=== PATIENT | female | born 1960 | race Caucasian/White ===

== ENCOUNTER 2017-06-30 14:03 | Inpatient (IN) | payer OTHER ==
[2017-06-30 14:54] VITALS: BMI 25.8
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
[2017-06-30] MEDS ORDERED: guaiFENesin/D-METHORPHAN HB 10 ML UNIT-DOSE CUPS PO PRN (20:14)
[2017-06-30] MEDS ORDERED: P-EPHED 60MG/TRIPROLIDI 2.5MG TABLET PO PRN (20:14)
[2017-06-30] MEDS ORDERED: LOPERAMIDE HCL 2 MG CAPSULE PO PRN (20:14)
[2017-06-30] MEDS ORDERED: MAGNESIUM CITRATE 300 ML BOTTLE PO PRN (20:14)
[2017-06-30] MEDS ORDERED: DOCUSATE SODIUM 100 MG CAPSULE (FP) PO PRN (20:20)
[2017-06-30] MEDS: BUDESONIDE/FORMETEROL FUMARATE 80/4.5 mcg INHALER IH SCH (23:49)
[2017-06-30] MEDS: THIAMINE HCL 100 MG TABLET (FP) PO SCH (23:51)
[2017-06-30] MEDS: ALBUTEROL SO4 18 GM HFA INHALER IH SCH (23:51)
[2017-06-30] MEDS: hydrOXYzine PAMOATE 50 MG CAPSULE (FP) PO PRN (23:52)
[2017-07-01] MEDS: ALBUTEROL SO4 18 GM HFA INHALER IH SCH ×4 (00:09→12:06)
[2017-07-01 01:35] LABS: URINE APPEARANCE SLCLOUDY; URINE BILIRUBIN NEGATIVE (NEGATIVE); URINE BLOOD NEGATIVE (NEGATIVE); URINE COLOR YELLOW; URINE GLUCOSE (UA) NEGATIVE (NEGATIVE); URINE KETONE NEGATIVE (NEGATIVE); URINE NITRITE POSITIVE (NEGATIVE); URINE PROTEIN NEGATIVE (NEGATIVE); URINE UROBILINOGEN NEGATIVE mg/dL (0.2-1.0)
[2017-07-01 02:06] LABS: EPI CELLS RARE /HPF (FEW); URINE BACTERIA RARE /hpf (NONE SEEN); URINE MUCUS RARE
[2017-07-01] MEDS: MAGNESIUM HYDROX 2400MG/30ML ORAL SUSPENSION 30 ML CUP PO PRN (02:48)
[2017-07-01] MEDS: GABAPENTIN 300 MG CAPSULE (FP) PO SCH ×3 (06:43→21:22)
[2017-07-01] MEDS: METHADONE HCL 40 MG DISPERSABLE TABLET PO SCH (07:39)
[2017-07-01] MEDS ORDERED: PT OWN MED DRAWER 7, Y5N ONE ×2 (08:30→20:02)
[2017-07-01] MEDS: CITALOPRAM HYDROBROMIDE 20 MG TABLET (FP) PO SCH (09:12)
[2017-07-01] MEDS: NICOTINE 21 MG/24 HOURS TOPICAL PATCH TD SCH (09:12)
[2017-07-01] MEDS: PRENATAL VITAMINS W/ FOLIC ACID TABLET (FP) PO SCH (09:13)
[2017-07-01] MEDS: BUDESONIDE/FORMETEROL FUMARATE 80/4.5 mcg INHALER IH SCH ×2 (09:13→21:21)
[2017-07-01] MEDS: PANTOPRAZOLE 40 MG TABLET (FP) PO SCH (09:13)
[2017-07-01 10:19] LABS: CHLORIDE 101 mmol/L (98-107); HEMATOCRIT 34.4 % (32.4-45.2); HEMOGLOBIN 11.5 GM/dL (10.7-15.3); MCH 28.3 pg (25.7-33.7); MCHC 33.3 g/dl (32.0-36.0); MEAN CELL VOLUME 84.9 fl (80-96); MEAN PLT VOLUME 9.6 fl (7.5-11.1); PLATELET COUNT 201 K/MM3 (134-434); POTASSIUM 4.5 mmol/L (3.5-5.1); RBC 4.05 M/mm3 (3.60-5.2); RDW 14.1 % (11.6-15.6); SODIUM 136 mmol/L (136-145); WHITE BLOOD COUNT 7.2 K/mm3 (4.0-10.0)
[2017-07-01 10:36] LABS: ALBUMIN 3.1 g/dl (3.4-5.0); ALK PHOS 95 U/L (45-117); ANION GAP 6 (8-16); BILIRUBIN,TOTAL 0.5 mg/dL (0.2-1.0); BLOOD UREA NITROGEN 20 mg/dL (7-18); CALCIUM 8.4 mg/dL (8.5-10.1); CO2 29 mmol/L (21-32); CREATININE 0.8 mg/dL (0.55-1.02); GLUCOSE,RANDOM 130 mg/dL (74-106); SGOT/AST 77 U/L (15-37); SGPT/ALT 90 U/L (12-78); TOT PROT 6.5 g/dl (6.4-8.2)
[2017-07-01 11:07] LABS: URINE LEUK ESTERASE 2+ (NEGATIVE)
[2017-07-01] MEDS ORDERED: FLU VACCINE QUAD 60 MCG/0.5 ML (MDV 17-18) IM ONE (12:00)
[2017-07-01] MEDS: IBUPROFEN 400 MG TABLET (FP) PO PRN (15:34)
[2017-07-01] MEDS: hydrOXYzine PAMOATE 50 MG CAPSULE (FP) PO PRN ×2 (15:36→23:45)
[2017-07-01] MEDS: THIAMINE HCL 100 MG TABLET (FP) PO SCH (21:22)
[2017-07-01] MEDS: QUEtiapine FUMARATE 100 MG TABLET (FP) PO SCH (21:22)
[2017-07-02] MEDS: METHADONE HCL 40 MG DISPERSABLE TABLET PO SCH (06:47)
[2017-07-02] MEDS: GABAPENTIN 300 MG CAPSULE (FP) PO SCH ×3 (06:47→21:28)
[2017-07-02] MEDS: MAG HYDROX/AL HYDROX/SIMETH 30 ML UNIT-DOSE CUP PO PRN (06:50)
[2017-07-02] MEDS: ACETAMINOPHEN 325 MG TABLET (FP) PO PRN (06:52)
--- NOTE | 2017-07-02 08:34 | EKG ---
Test Reason : Blood Pressure : / mmHG Vent. Rate : 087 BPM Atrial Rate : 087 BPM P-R Int : 144 ms QRS Dur : 078 ms QT Int : 368 ms P-R-T Axes : 068 070 064 degrees QTc Int : 442 ms NORMAL SINUS RHYTHM POSSIBLE LEFT ATRIAL ENLARGEMENT BORDERLINE ECG NO PREVIOUS ECGS AVAILABLE Confirmed by AMARIS PAINTER MD ([id number]) on 07/02/2017 8:34:09 AM Referred By: Confirmed By:AMARIS PAINTER MD
[2017-07-02] MEDS: NICOTINE 21 MG/24 HOURS TOPICAL PATCH TD SCH (09:47)
[2017-07-02] MEDS: CITALOPRAM HYDROBROMIDE 20 MG TABLET (FP) PO SCH (09:47)
[2017-07-02] MEDS: PRENATAL VITAMINS W/ FOLIC ACID TABLET (FP) PO SCH (09:48)
[2017-07-02] MEDS: QUEtiapine FUMARATE 100 MG TABLET (FP) PO SCH ×2 (09:48→21:28)
[2017-07-02] MEDS: PANTOPRAZOLE 40 MG TABLET (FP) PO SCH (09:49)
[2017-07-02] MEDS: BUDESONIDE/FORMETEROL FUMARATE 80/4.5 mcg INHALER IH SCH ×2 (09:49→21:27)
[2017-07-02] MEDS: THIAMINE HCL 100 MG TABLET (FP) PO SCH (21:28)
[2017-07-02] MEDS: hydrOXYzine PAMOATE 50 MG CAPSULE (FP) PO PRN (21:54)
[2017-07-03] MEDS: IBUPROFEN 400 MG TABLET (FP) PO PRN (02:43)
[2017-07-03] MEDS: METHADONE HCL 40 MG DISPERSABLE TABLET PO SCH (06:10)
[2017-07-03] MEDS: GABAPENTIN 300 MG CAPSULE (FP) PO SCH ×3 (06:11→21:30)
[2017-07-03] MEDS ORDERED: PT OWN MED DRAWER 7, Y5N ONE ×2 (08:21→11:16)
[2017-07-03] MEDS: QUEtiapine FUMARATE 100 MG TABLET (FP) PO SCH ×2 (10:23→21:30)
[2017-07-03] MEDS: PRENATAL VITAMINS W/ FOLIC ACID TABLET (FP) PO SCH (10:23)
[2017-07-03] MEDS: BUDESONIDE/FORMETEROL FUMARATE 80/4.5 mcg INHALER IH SCH ×2 (10:23→21:30)
[2017-07-03] MEDS: PANTOPRAZOLE 40 MG TABLET (FP) PO SCH (10:23)
[2017-07-03] MEDS: NICOTINE 21 MG/24 HOURS TOPICAL PATCH TD SCH (10:23)
[2017-07-03] MEDS: CITALOPRAM HYDROBROMIDE 20 MG TABLET (FP) PO SCH (10:23)
[2017-07-03] MEDS ORDERED: METHADONE HCL 40 MG DISPERSABLE TABLET PO SCH (10:51)
[2017-07-03] MEDS ORDERED: METHADONE HCL 10 MG TABLET PO ONE (10:54)
--- NOTE | 2017-07-03 10:58 | PN ---
BHS Progress Note (SOAP) Subjective: patient c/o of cravings and desire to use, dose was released while incarceratted also has ankle swelling and body aches, withdrwwal sx Objective: 07/03/17 10:56 Vital Signs - 8 hr 07/03/17 06:52 Temperature 98.2 F Pulse Rate 91 H Respiratory 18 Rate Blood Pressure 137/76 Laboratory Tests 06/30/17 07/01/17 07/01/17 23:00 08:20 08:20 WBC 7.2 RBC 4.05 Hgb 11.5 Hct 34.4 MCV 84.9 MCH 28.3 MCHC 33.3 RDW 14.1 Plt Count 201 MPV 9.6 Sodium 136 Potassium 4.5 Chloride 101 Carbon Dioxide 29 Anion Gap 6 L BUN 20 H Creatinine 0.8 Creat Clearance w eGFR > 60 Random Glucose 130 H Calcium 8.4 L Total Bilirubin 0.5 AST 77 H ALT 90 H Alkaline Phosphatase 95 Total Protein 6.5 Albumin 3.1 L Urine Color Yellow Urine Appearance Slcloudy Urine pH 5.0 Ur Specific [place] 1.011 Urine Protein Negative Urine Glucose (UA) Negative Urine Ketones Negative Urine Blood Negative Urine Nitrite Positive Urine Bilirubin Negative Urine Urobilinogen Negative Ur Leukocyte Esterase 2+ H Urine WBC (Auto) 31 Urine RBC (Auto) 1 Ur Epithelial Cells Rare Urine Bacteria Rare Urine Mucus Rare RPR Titer 07/01/17 08:20 WBC RBC Hgb Hct MCV MCH MCHC RDW Plt Count MPV Sodium Potassium Chloride Carbon Dioxide Anion Gap BUN Creatinine Creat Clearance w eGFR Random Glucose Calcium Total Bilirubin AST ALT Alkaline Phosphatase Total Protein Albumin Urine Color Urine Appearance Urine pH Ur Specific [place] Urine Protein Urine Glucose (UA) Urine Ketones Urine Blood Urine Nitrite Urine Bilirubin Urine Urobilinogen Ur Leukocyte Esterase Urine WBC (Auto) Urine RBC (Auto) Ur Epithelial Cells Urine Bacteria Urine Mucus RPR Titer Nonreactive Assessment: 07/03/17 10:57 hyperglycemia, opioid withdrwal 2/2 inadequate methadoen dosing, increase methadone by 10mg to 50mg and reassess every 3 days, can increase dose 10-20mg/ week while in rehab if needed, dietary consult. , fluids, symptomatic relief of withdrwal ordered, clonidine and baclofen.
[2017-07-03] MEDS: BACLOFEN 10 MG TABLET (FP) PO SCH ×3 (11:22→21:29)
[2017-07-03] MEDS: cloNIDine HCL 0.1 MG TABLET PO SCH ×2 (11:22→21:29)
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
[2017-07-03] MEDS: IBUPROFEN 600 MG TABLET (FP) PO PRN (13:19)
[2017-07-03] MEDS: traZODone HCL 100 MG TABLET (FP) PO SCH (21:29)
[2017-07-03] MEDS: THIAMINE HCL 100 MG TABLET (FP) PO SCH (21:30)
[2017-07-04] MEDS ORDERED: METHADONE HCL 10 MG TABLET ONE (05:42)
[2017-07-04] MEDS ORDERED: METHADONE HCL 40 MG DISPERSABLE TABLET ONE (05:42)
[2017-07-04] MEDS ORDERED: METHADONE 40 MG, METHADONE 10 MG PO SCH (06:00)
[2017-07-04] MEDS: BACLOFEN 10 MG TABLET (FP) PO SCH ×2 (06:18→13:08)
[2017-07-04] MEDS: GABAPENTIN 300 MG CAPSULE (FP) PO SCH ×3 (06:18→21:31)
[2017-07-04] MEDS: PANTOPRAZOLE 40 MG TABLET (FP) PO SCH (06:18)
[2017-07-04] MEDS: IBUPROFEN 600 MG TABLET (FP) PO PRN (06:19)
[2017-07-04] MEDS: MENTHOL/PHENOL 1 EACH UD MM PRN (06:19)
[2017-07-04] MEDS ORDERED: PT OWN MED DRAWER 7, Y5N ONE (08:52)
[2017-07-04] MEDS: PRENATAL VITAMINS W/ FOLIC ACID TABLET (FP) PO SCH (10:04)
[2017-07-04] MEDS: NICOTINE 21 MG/24 HOURS TOPICAL PATCH TD SCH (10:04)
[2017-07-04] MEDS: QUEtiapine FUMARATE 100 MG TABLET (FP) PO SCH ×2 (10:04→21:31)
[2017-07-04] MEDS: CITALOPRAM HYDROBROMIDE 20 MG TABLET (FP) PO SCH (10:04)
[2017-07-04] MEDS: BUDESONIDE/FORMETEROL FUMARATE 80/4.5 mcg INHALER IH SCH ×2 (10:05→21:32)
[2017-07-04] MEDS: cloNIDine HCL 0.1 MG TABLET PO SCH (11:00)
[2017-07-04] MEDS: ALBUTEROL SO4 18 GM HFA INHALER IH PRN (12:06)
[2017-07-04] MEDS ORDERED: METHADONE HCL 40 MG DISPERSABLE TABLET PO SCH (15:13)
[2017-07-04] MEDS ORDERED: METHADONE 40 MG, METHADONE 20 MG PO ONE (16:15)
[2017-07-04] MEDS: MICONAZOLE NITRATE 100 MG SUPP SUPP.VAG PV SCH (21:31)
[2017-07-04] MEDS: traZODone HCL 100 MG TABLET (FP) PO SCH (21:31)
[2017-07-04] MEDS: THIAMINE HCL 100 MG TABLET (FP) PO SCH (21:31)
[2017-07-05] MEDS ORDERED: METHADONE 40 MG, METHADONE 20 MG PO SCH (06:00)
[2017-07-05] MEDS ORDERED: METHADONE HCL 10 MG TABLET ONE (06:24)
[2017-07-05] MEDS ORDERED: METHADONE HCL 40 MG DISPERSABLE TABLET ONE (06:25)
[2017-07-05] MEDS: GABAPENTIN 300 MG CAPSULE (FP) PO SCH ×3 (06:50→21:34)
[2017-07-05] MEDS: IBUPROFEN 600 MG TABLET (FP) PO PRN ×2 (06:52→22:35)
[2017-07-05] MEDS: hydrOXYzine PAMOATE 50 MG CAPSULE (FP) PO PRN (06:53)
[2017-07-05] MEDS: MENTHOL/PHENOL 1 EACH UD MM PRN ×2 (06:54→18:24)
[2017-07-05] MEDS: PANTOPRAZOLE 40 MG TABLET (FP) PO SCH (07:15)
[2017-07-05] MEDS: CITALOPRAM HYDROBROMIDE 20 MG TABLET (FP) PO SCH (10:13)
[2017-07-05] MEDS: BUDESONIDE/FORMETEROL FUMARATE 80/4.5 mcg INHALER IH SCH ×2 (10:13→21:35)
[2017-07-05] MEDS: PRENATAL VITAMINS W/ FOLIC ACID TABLET (FP) PO SCH (10:14)
[2017-07-05] MEDS: QUEtiapine FUMARATE 100 MG TABLET (FP) PO SCH ×2 (10:14→21:36)
[2017-07-05] MEDS: NICOTINE 21 MG/24 HOURS TOPICAL PATCH TD SCH (10:14)
[2017-07-05] MEDS ORDERED: ALBUTEROL SO4 2.5/IPRATROPIUM 0.5 INH SOL 3 ML VIAL.NEB. NEB ONE (11:08)
[2017-07-05] MEDS ORDERED: METHADONE HCL 40 MG DISPERSABLE TABLET PO SCH (11:09)
--- NOTE | 2017-07-05 11:13 | PN ---
BHS Progress Note (SOAP) Subjective: would like to increae methadone dose, no sedation. falls asleep to frequently, still has cravings and body aches. abdo pain and umbilical hernia, radiates to rlQ Objective: 07/05/17 11:11 Vital Signs - 24 hr 07/05/17 07/05/17 07/05/17 00:30 03:30 07:14 Temperature 98.3 F Pulse Rate 103 H Respiratory 18 18 16 Rate Blood Pressure 113/69 Laboratory Tests 06/30/17 07/01/17 07/01/17 23:00 08:20 08:20 WBC 7.2 RBC 4.05 Hgb 11.5 Hct 34.4 MCV 84.9 MCH 28.3 MCHC 33.3 RDW 14.1 Plt Count 201 MPV 9.6 Sodium 136 Potassium 4.5 Chloride 101 Carbon Dioxide 29 Anion Gap 6 L BUN 20 H Creatinine 0.8 Creat Clearance w eGFR > 60 Random Glucose 130 H Calcium 8.4 L Total Bilirubin 0.5 AST 77 H ALT 90 H Alkaline Phosphatase 95 Total Protein 6.5 Albumin 3.1 L Urine Color Yellow Urine Appearance Slcloudy Urine pH 5.0 Ur Specific [place] 1.011 Urine Protein Negative Urine Glucose (UA) Negative Urine Ketones Negative Urine Blood Negative Urine Nitrite Positive Urine Bilirubin Negative Urine Urobilinogen Negative Ur Leukocyte Esterase 2+ H Urine WBC (Auto) 31 Urine RBC (Auto) 1 Ur Epithelial Cells Rare Urine Bacteria Rare Urine Mucus Rare RPR Titer 07/01/17 08:20 WBC RBC Hgb Hct MCV MCH MCHC RDW Plt Count MPV Sodium Potassium Chloride Carbon Dioxide Anion Gap BUN Creatinine Creat Clearance w eGFR Random Glucose Calcium Total Bilirubin AST ALT Alkaline Phosphatase Total Protein Albumin Urine Color Urine Appearance Urine pH Ur Specific [place] Urine Protein Urine Glucose (UA) Urine Ketones Urine Blood Urine Nitrite Urine Bilirubin Urine Urobilinogen Ur Leukocyte Esterase Urine WBC (Auto) Urine RBC (Auto) Ur Epithelial Cells Urine Bacteria Urine Mucus RPR Titer Nonreactive umbilical hernia, soft non tender no rebound, no incarceration. Assessment: 07/05/17 11:12 opioid withdrawal - will slowly titrate methadone dose until it is adequate - start 70mg dialy tomorrow had 60mg today. colace for constipation, zofran for nausea.
[2017-07-05] MEDS: ONDANSETRON *ODT* 4 MG TABLET SL ONE (12:06)
[2017-07-05] MEDS ORDERED: GABAPENTIN 400 MG CAPSULE (FP) PO SCH (14:00)
[2017-07-05] MEDS: traZODone HCL 100 MG TABLET (FP) PO SCH (21:34)
[2017-07-05] MEDS: THIAMINE HCL 100 MG TABLET (FP) PO SCH (21:34)
[2017-07-05] MEDS: MICONAZOLE NITRATE 100 MG SUPP SUPP.VAG PV SCH (21:34)
[2017-07-06] MEDS ORDERED: METHADONE 40 MG, METHADONE 30 MG PO SCH (06:00)
[2017-07-06] MEDS ORDERED: METHADONE HCL 40 MG DISPERSABLE TABLET PO SCH (06:00)
[2017-07-06] MEDS ORDERED: METHADONE HCL 10 MG TABLET ONE (06:13)
[2017-07-06] MEDS ORDERED: METHADONE HCL 40 MG DISPERSABLE TABLET ONE (06:13)
[2017-07-06] MEDS: METHADONE 40 MG, METHADONE 20 MG PO SCH (06:40)
[2017-07-06] MEDS: IBUPROFEN 600 MG TABLET (FP) PO PRN ×2 (06:41→17:00)
[2017-07-06] MEDS: PANTOPRAZOLE 40 MG TABLET (FP) PO SCH (06:41)
[2017-07-06] MEDS: GABAPENTIN 300 MG CAPSULE (FP) PO SCH ×3 (06:41→21:33)
[2017-07-06] MEDS: PRENATAL VITAMINS W/ FOLIC ACID TABLET (FP) PO SCH (10:06)
[2017-07-06] MEDS: CITALOPRAM HYDROBROMIDE 20 MG TABLET (FP) PO SCH (10:06)
[2017-07-06] MEDS: NICOTINE 21 MG/24 HOURS TOPICAL PATCH TD SCH (10:06)
[2017-07-06] MEDS: BUDESONIDE/FORMETEROL FUMARATE 80/4.5 mcg INHALER IH SCH ×2 (10:06→21:33)
--- NOTE | 2017-07-06 12:37 | PN ---
BHS Progress Note Note: uti on c& s will start macrodantin bl le edema add teds will cont to monitor for increased swelling edema not cw cellulitis at this time but possibly in evolution, dw supervisor frame sample and pattern
[2017-07-06] MEDS ORDERED: PT OWN MED DRAWER 7, Y5N ONE ×2 (15:47→15:52)
[2017-07-06] MEDS: COLLOIDAL OATMEAL 1 BAR EACH TP PRN (15:50)
[2017-07-06] MEDS: MINERAL OIL/PETROLAT/WATER TOPICAL CREAM 113 GM JAR TP SCH ×2 (15:50→21:35)
[2017-07-06] MEDS: NITROFURANTOIN MACROCRYSTAL 50 MG CAPSULE (FP) PO SCH ×2 (17:30→23:21)
[2017-07-06] MEDS: NICOTINE POLACRILEX 2 MG GUM BC PRN (17:31)
[2017-07-06] MEDS: QUEtiapine FUMARATE 100 MG TABLET (FP) PO SCH (21:33)
[2017-07-06] MEDS: traZODone HCL 100 MG TABLET (FP) PO SCH (21:33)
[2017-07-06] MEDS: THIAMINE HCL 100 MG TABLET (FP) PO SCH (21:33)
[2017-07-06] MEDS: MICONAZOLE NITRATE 100 MG SUPP SUPP.VAG PV SCH (21:34)
[2017-07-06] MEDS: MENTHOL/PHENOL 1 EACH UD MM PRN (21:35)
[2017-07-07] MEDS: IBUPROFEN 600 MG TABLET (FP) PO PRN ×2 (02:53→19:20)
[2017-07-07] MEDS ORDERED: METHADONE HCL 10 MG TABLET ONE (03:29)
[2017-07-07] MEDS ORDERED: METHADONE HCL 40 MG DISPERSABLE TABLET ONE (03:30)
[2017-07-07] MEDS: METHADONE 40 MG, METHADONE 20 MG PO SCH (06:18)
[2017-07-07] MEDS: NITROFURANTOIN MACROCRYSTAL 50 MG CAPSULE (FP) PO SCH ×4 (06:19→23:51)
[2017-07-07] MEDS: GABAPENTIN 300 MG CAPSULE (FP) PO SCH ×3 (06:19→21:47)
[2017-07-07] MEDS: PANTOPRAZOLE 40 MG TABLET (FP) PO SCH (06:19)
[2017-07-07] MEDS ORDERED: PT OWN MED DRAWER 7, Y5N ONE ×4 (08:38→19:37)
[2017-07-07] MEDS: PRENATAL VITAMINS W/ FOLIC ACID TABLET (FP) PO SCH (10:13)
[2017-07-07] MEDS: CITALOPRAM HYDROBROMIDE 20 MG TABLET (FP) PO SCH (10:13)
[2017-07-07] MEDS: MINERAL OIL/PETROLAT/WATER TOPICAL CREAM 113 GM JAR TP SCH ×2 (10:14→21:46)
[2017-07-07] MEDS: NICOTINE 21 MG/24 HOURS TOPICAL PATCH TD SCH (10:14)
[2017-07-07] MEDS: BUDESONIDE/FORMETEROL FUMARATE 80/4.5 mcg INHALER IH SCH ×2 (10:17→21:46)
[2017-07-07] MEDS: ALBUTEROL SO4 18 GM HFA INHALER IH PRN (12:09)
[2017-07-07] MEDS: ALBUTEROL SO4 2.5/IPRATROPIUM 0.5 INH SOL 3 ML VIAL.NEB. NEB PRN (13:35)
[2017-07-07] MEDS: hydrOXYzine PAMOATE 50 MG CAPSULE (FP) PO PRN (18:13)
[2017-07-07] MEDS: MAG HYDROX/AL HYDROX/SIMETH 30 ML UNIT-DOSE CUP PO PRN (18:59)
[2017-07-07] MEDS: traZODone HCL 100 MG TABLET (FP) PO SCH (21:46)
[2017-07-07] MEDS: QUEtiapine FUMARATE 100 MG TABLET (FP) PO SCH (21:47)
[2017-07-07] MEDS: THIAMINE HCL 100 MG TABLET (FP) PO SCH (21:47)
[2017-07-07] MEDS: DOCUSATE SODIUM 100 MG CAPSULE (FP) PO SCH (21:51)
[2017-07-07] MEDS: MICONAZOLE NITRATE 100 MG SUPP SUPP.VAG PV SCH (21:51)
[2017-07-07] MEDS: ACETAMINOPHEN 325 MG TABLET (FP) PO PRN (23:50)
[2017-07-08] MEDS: IBUPROFEN 600 MG TABLET (FP) PO PRN ×2 (02:33→17:00)
[2017-07-08] MEDS ORDERED: METHADONE HCL 10 MG TABLET ONE (05:57)
[2017-07-08] MEDS ORDERED: METHADONE HCL 40 MG DISPERSABLE TABLET ONE (05:58)
[2017-07-08] MEDS: NITROFURANTOIN MACROCRYSTAL 50 MG CAPSULE (FP) PO SCH ×4 (06:43→23:43)
[2017-07-08] MEDS: GABAPENTIN 300 MG CAPSULE (FP) PO SCH ×3 (06:43→21:36)
[2017-07-08] MEDS: PANTOPRAZOLE 40 MG TABLET (FP) PO SCH (06:43)
[2017-07-08] MEDS: METHADONE 40 MG, METHADONE 20 MG PO SCH (06:44)
[2017-07-08] MEDS ORDERED: PT OWN MED DRAWER 7, Y5N ONE ×2 (08:40→21:39)
[2017-07-08] MEDS: PRENATAL VITAMINS W/ FOLIC ACID TABLET (FP) PO SCH (10:17)
[2017-07-08] MEDS: NICOTINE 21 MG/24 HOURS TOPICAL PATCH TD SCH (10:17)
[2017-07-08] MEDS: MINERAL OIL/PETROLAT/WATER TOPICAL CREAM 113 GM JAR TP SCH ×2 (10:18→21:37)
[2017-07-08] MEDS: CITALOPRAM HYDROBROMIDE 20 MG TABLET (FP) PO SCH (10:18)
[2017-07-08] MEDS: BUDESONIDE/FORMETEROL FUMARATE 80/4.5 mcg INHALER IH SCH ×2 (10:18→21:39)
[2017-07-08] MEDS: hydrOXYzine PAMOATE 50 MG CAPSULE (FP) PO PRN ×2 (10:19→18:45)
--- NOTE | 2017-07-08 15:08 | PN ---
BHS Progress Note Note: Swelling of both lower extremities, pt. is wearing elastic stockings & elevates LE in bed. P : Lasix 20mg/d Aldactone 25mg bid
[2017-07-08] MEDS: FUROSEMIDE 20 MG TABLET (FP) PO SCH (15:38)
[2017-07-08] MEDS: SPIRONOLACTONE 25 MG TABLET (FP) PO SCH (18:44)
[2017-07-08] MEDS: MAG HYDROX/AL HYDROX/SIMETH 30 ML UNIT-DOSE CUP PO PRN (18:46)
[2017-07-08] MEDS: DOCUSATE SODIUM 100 MG CAPSULE (FP) PO SCH (21:35)
[2017-07-08] MEDS: THIAMINE HCL 100 MG TABLET (FP) PO SCH (21:35)
[2017-07-08] MEDS: traZODone HCL 100 MG TABLET (FP) PO SCH (21:35)
[2017-07-08] MEDS: MICONAZOLE NITRATE 100 MG SUPP SUPP.VAG PV SCH (21:36)
[2017-07-08] MEDS: QUEtiapine FUMARATE 100 MG TABLET (FP) PO SCH (21:39)
[2017-07-09] MEDS ORDERED: METHADONE HCL 10 MG TABLET ONE (05:51)
[2017-07-09] MEDS ORDERED: METHADONE HCL 40 MG DISPERSABLE TABLET ONE (05:51)
[2017-07-09] MEDS: METHADONE 40 MG, METHADONE 20 MG PO SCH (07:05)
[2017-07-09] MEDS: NITROFURANTOIN MACROCRYSTAL 50 MG CAPSULE (FP) PO SCH ×3 (07:06→18:22)
[2017-07-09] MEDS: PANTOPRAZOLE 40 MG TABLET (FP) PO SCH (07:06)
[2017-07-09] MEDS: GABAPENTIN 300 MG CAPSULE (FP) PO SCH ×3 (07:06→21:32)
[2017-07-09] MEDS ORDERED: cloNIDine HCL 0.1 MG TABLET PO ONE (07:20)
[2017-07-09] MEDS ORDERED: PT OWN MED DRAWER 7, Y5N ONE ×2 (08:51→17:10)
[2017-07-09 10:02] LABS: ANION GAP 6 (8-16); BLOOD UREA NITROGEN 20 mg/dL (7-18); CALCIUM 9.1 mg/dL (8.5-10.1); CHLORIDE 101 mmol/L (98-107); CO2 31 mmol/L (21-32); GLUCOSE,RANDOM 128 mg/dL (74-106); POTASSIUM 4.6 mmol/L (3.5-5.1); SODIUM 138 mmol/L (136-145)
[2017-07-09] MEDS: SPIRONOLACTONE 25 MG TABLET (FP) PO SCH ×2 (10:05→18:22)
[2017-07-09] MEDS: FUROSEMIDE 20 MG TABLET (FP) PO SCH (10:05)
[2017-07-09] MEDS: NICOTINE 21 MG/24 HOURS TOPICAL PATCH TD SCH (10:05)
[2017-07-09] MEDS: PRENATAL VITAMINS W/ FOLIC ACID TABLET (FP) PO SCH (10:05)
[2017-07-09] MEDS: BUDESONIDE/FORMETEROL FUMARATE 80/4.5 mcg INHALER IH SCH ×2 (10:06→21:35)
[2017-07-09] MEDS: MINERAL OIL/PETROLAT/WATER TOPICAL CREAM 113 GM JAR TP SCH ×2 (10:06→21:35)
[2017-07-09] MEDS: CITALOPRAM HYDROBROMIDE 20 MG TABLET (FP) PO SCH (10:06)
[2017-07-09] MEDS: hydrOXYzine PAMOATE 50 MG CAPSULE (FP) PO PRN (12:14)
[2017-07-09] MEDS: IBUPROFEN 600 MG TABLET (FP) PO PRN (18:24)
[2017-07-09] MEDS: THIAMINE HCL 100 MG TABLET (FP) PO SCH (21:32)
[2017-07-09] MEDS: traZODone HCL 100 MG TABLET (FP) PO SCH (21:32)
[2017-07-09] MEDS: DOCUSATE SODIUM 100 MG CAPSULE (FP) PO SCH (21:32)
[2017-07-09] MEDS: QUEtiapine FUMARATE 100 MG TABLET (FP) PO SCH (21:32)
[2017-07-09] MEDS: MICONAZOLE NITRATE 100 MG SUPP SUPP.VAG PV SCH (21:33)
[2017-07-09] MEDS: MAG HYDROX/AL HYDROX/SIMETH 30 ML UNIT-DOSE CUP PO PRN (21:37)
[2017-07-09] MEDS: NICOTINE POLACRILEX 2 MG GUM BC PRN (21:38)
[2017-07-10] MEDS: NITROFURANTOIN MACROCRYSTAL 50 MG CAPSULE (FP) PO SCH ×5 (00:15→23:36)
[2017-07-10] MEDS: MENTHOL/PHENOL 1 EACH UD MM PRN (03:43)
[2017-07-10] MEDS ORDERED: METHADONE HCL 10 MG TABLET ONE (05:54)
[2017-07-10] MEDS ORDERED: METHADONE HCL 40 MG DISPERSABLE TABLET ONE (05:55)
[2017-07-10] MEDS ORDERED: PT OWN MED DRAWER 7, Y5N ONE ×2 (05:56→08:40)
[2017-07-10] MEDS: GABAPENTIN 300 MG CAPSULE (FP) PO SCH ×3 (06:10→21:34)
[2017-07-10] MEDS: METHADONE 40 MG, METHADONE 20 MG PO SCH (06:10)
[2017-07-10] MEDS: IBUPROFEN 600 MG TABLET (FP) PO PRN ×2 (06:11→21:35)
[2017-07-10] MEDS: PANTOPRAZOLE 40 MG TABLET (FP) PO SCH (06:11)
[2017-07-10] MEDS: BUDESONIDE/FORMETEROL FUMARATE 80/4.5 mcg INHALER IH SCH ×2 (10:06→21:38)
[2017-07-10] MEDS: PRENATAL VITAMINS W/ FOLIC ACID TABLET (FP) PO SCH (10:06)
[2017-07-10] MEDS: CITALOPRAM HYDROBROMIDE 20 MG TABLET (FP) PO SCH (10:06)
[2017-07-10] MEDS: SPIRONOLACTONE 25 MG TABLET (FP) PO SCH ×2 (10:06→17:10)
[2017-07-10] MEDS: FUROSEMIDE 20 MG TABLET (FP) PO SCH (10:06)
[2017-07-10] MEDS: NICOTINE 21 MG/24 HOURS TOPICAL PATCH TD SCH (10:07)
[2017-07-10] MEDS: MINERAL OIL/PETROLAT/WATER TOPICAL CREAM 113 GM JAR TP SCH ×2 (10:08→21:37)
[2017-07-10] MEDS: NICOTINE POLACRILEX 2 MG GUM BC PRN ×2 (10:10→21:37)
[2017-07-10] MEDS: hydrOXYzine PAMOATE 50 MG CAPSULE (FP) PO PRN (13:03)
[2017-07-10] MEDS: ALBUTEROL SO4 18 GM HFA INHALER IH PRN (14:25)
[2017-07-10] MEDS: THIAMINE HCL 100 MG TABLET (FP) PO SCH (21:34)
[2017-07-10] MEDS: traZODone HCL 100 MG TABLET (FP) PO SCH (21:34)
[2017-07-10] MEDS: QUEtiapine FUMARATE 100 MG TABLET (FP) PO SCH (21:34)
[2017-07-10] MEDS: DOCUSATE SODIUM 100 MG CAPSULE (FP) PO SCH (21:35)
[2017-07-10] MEDS: MICONAZOLE NITRATE 100 MG SUPP SUPP.VAG PV SCH (21:36)
[2017-07-11] MEDS ORDERED: METHADONE HCL 10 MG TABLET ONE (03:12)
[2017-07-11] MEDS ORDERED: METHADONE HCL 40 MG DISPERSABLE TABLET ONE (03:12)
[2017-07-11] MEDS: METHADONE 40 MG, METHADONE 20 MG PO SCH (06:24)
[2017-07-11] MEDS: GABAPENTIN 300 MG CAPSULE (FP) PO SCH ×3 (06:25→21:32)
[2017-07-11] MEDS: PANTOPRAZOLE 40 MG TABLET (FP) PO SCH (06:25)
[2017-07-11] MEDS: NITROFURANTOIN MACROCRYSTAL 50 MG CAPSULE (FP) PO SCH ×4 (06:25→23:14)
[2017-07-11] MEDS: MENTHOL/PHENOL 1 EACH UD MM PRN (06:26)
[2017-07-11] MEDS: SPIRONOLACTONE 25 MG TABLET (FP) PO SCH ×2 (10:10→18:15)
[2017-07-11] MEDS: PRENATAL VITAMINS W/ FOLIC ACID TABLET (FP) PO SCH (10:10)
[2017-07-11] MEDS: BUDESONIDE/FORMETEROL FUMARATE 80/4.5 mcg INHALER IH SCH ×2 (10:10→21:32)
[2017-07-11] MEDS: FUROSEMIDE 20 MG TABLET (FP) PO SCH (10:10)
[2017-07-11] MEDS: CITALOPRAM HYDROBROMIDE 20 MG TABLET (FP) PO SCH (10:10)
[2017-07-11] MEDS: NICOTINE 21 MG/24 HOURS TOPICAL PATCH TD SCH (10:11)
[2017-07-11] MEDS: IBUPROFEN 600 MG TABLET (FP) PO PRN ×2 (10:12→23:16)
[2017-07-11] MEDS ORDERED: PT OWN MED DRAWER 7, Y5N ONE ×3 (10:14→23:12)
[2017-07-11] MEDS: MINERAL OIL/PETROLAT/WATER TOPICAL CREAM 113 GM JAR TP SCH ×2 (10:14→21:33)
[2017-07-11] MEDS: hydrOXYzine PAMOATE 50 MG CAPSULE (FP) PO PRN (13:15)
[2017-07-11] MEDS: traZODone HCL 100 MG TABLET (FP) PO SCH (21:31)
[2017-07-11] MEDS: DOCUSATE SODIUM 100 MG CAPSULE (FP) PO SCH (21:31)
[2017-07-11] MEDS: THIAMINE HCL 100 MG TABLET (FP) PO SCH (21:32)
[2017-07-11] MEDS: QUEtiapine FUMARATE 100 MG TABLET (FP) PO SCH (21:32)
[2017-07-11] MEDS: metroNIDAZOLE 0.75% VAGINAL GEL 70 GM TUBE VG SCH (21:34)
[2017-07-12] MEDS ORDERED: METHADONE 40 MG, METHADONE 20 MG PO SCH (06:00)
[2017-07-12] MEDS ORDERED: METHADONE HCL 40 MG DISPERSABLE TABLET ONE (06:24)
[2017-07-12] MEDS ORDERED: METHADONE HCL 10 MG TABLET ONE (06:24)
[2017-07-12] MEDS: NITROFURANTOIN MACROCRYSTAL 50 MG CAPSULE (FP) PO SCH ×4 (06:26→23:39)
[2017-07-12] MEDS: PANTOPRAZOLE 40 MG TABLET (FP) PO SCH (06:26)
[2017-07-12] MEDS: GABAPENTIN 300 MG CAPSULE (FP) PO SCH ×3 (06:26→21:33)
[2017-07-12] MEDS ORDERED: PT OWN MED DRAWER 7, Y5N ONE ×3 (08:35→21:42)
--- NOTE | 2017-07-12 09:01 | PN ---
BHS Progress Note (SOAP) Subjective: vaginal odor, monistat not effective, started last night on metronidoazole topical Objective: 07/12/17 09:00 Vital Signs - 24 hr 07/12/17 07/12/17 07/12/17 00:30 03:30 07:09 Temperature 98.0 F Pulse Rate 79 Respiratory 18 18 18 Rate Blood Pressure 116/74 Laboratory Tests 06/30/17 07/01/17 07/01/17 23:00 08:20 08:20 WBC 7.2 RBC 4.05 Hgb 11.5 Hct 34.4 MCV 84.9 MCH 28.3 MCHC 33.3 RDW 14.1 Plt Count 201 MPV 9.6 Sodium 136 Potassium 4.5 Chloride 101 Carbon Dioxide 29 Anion Gap 6 L BUN 20 H Creatinine 0.8 Creat Clearance w eGFR > 60 Random Glucose 130 H Calcium 8.4 L Total Bilirubin 0.5 AST 77 H ALT 90 H Alkaline Phosphatase 95 Total Protein 6.5 Albumin 3.1 L Urine Color Yellow Urine Appearance Slcloudy Urine pH 5.0 Ur Specific [place] 1.011 Urine Protein Negative Urine Glucose (UA) Negative Urine Ketones Negative Urine Blood Negative Urine Nitrite Positive Urine Bilirubin Negative Urine Urobilinogen Negative Ur Leukocyte Esterase 2+ H Urine WBC (Auto) 31 Urine RBC (Auto) 1 Ur Epithelial Cells Rare Urine Bacteria Rare Urine Mucus Rare RPR Titer 07/01/17 07/09/17 08:20 08:00 WBC RBC Hgb Hct MCV MCH MCHC RDW Plt Count MPV Sodium 138 Potassium 4.6 Chloride 101 Carbon Dioxide 31 Anion Gap 6 L BUN 20 H Creatinine 1.0 D Creat Clearance w eGFR Random Glucose 128 H Calcium 9.1 Total Bilirubin AST ALT Alkaline Phosphatase Total Protein Albumin Urine Color Urine Appearance Urine pH Ur Specific [place] Urine Protein Urine Glucose (UA) Urine Ketones Urine Blood Urine Nitrite Urine Bilirubin Urine Urobilinogen Ur Leukocyte Esterase Urine WBC (Auto) Urine RBC (Auto) Ur Epithelial Cells Urine Bacteria Urine Mucus RPR Titer Nonreactive Assessment: 07/12/17 09:01 bacterial vaginosis, cont metrogel, will increae methadone 10mg as patient reports cravings
[2017-07-12] MEDS: ALBUTEROL SO4 2.5/IPRATROPIUM 0.5 INH SOL 3 ML VIAL.NEB. NEB PRN (09:16)
[2017-07-12] MEDS: PRENATAL VITAMINS W/ FOLIC ACID TABLET (FP) PO SCH (10:23)
[2017-07-12] MEDS: FUROSEMIDE 20 MG TABLET (FP) PO SCH (10:23)
[2017-07-12] MEDS: MINERAL OIL/PETROLAT/WATER TOPICAL CREAM 113 GM JAR TP SCH ×2 (10:23→21:35)
[2017-07-12] MEDS: CITALOPRAM HYDROBROMIDE 20 MG TABLET (FP) PO SCH (10:23)
[2017-07-12] MEDS: SPIRONOLACTONE 25 MG TABLET (FP) PO SCH ×2 (10:23→18:50)
[2017-07-12] MEDS: NICOTINE 21 MG/24 HOURS TOPICAL PATCH TD SCH (10:24)
[2017-07-12] MEDS: BUDESONIDE/FORMETEROL FUMARATE 80/4.5 mcg INHALER IH SCH ×2 (10:24→21:38)
[2017-07-12] MEDS: TOLNAFTATE 1% CREAM 15 GM TUBE TP SCH ×2 (10:25→21:38)
[2017-07-12] MEDS: IBUPROFEN 600 MG TABLET (FP) PO PRN (11:59)
[2017-07-12] MEDS: MAG HYDROX/AL HYDROX/SIMETH 30 ML UNIT-DOSE CUP PO PRN (13:02)
[2017-07-12] MEDS: hydrOXYzine PAMOATE 50 MG CAPSULE (FP) PO PRN (18:51)
[2017-07-12] MEDS: QUEtiapine FUMARATE 100 MG TABLET (FP) PO SCH (21:33)
[2017-07-12] MEDS: THIAMINE HCL 100 MG TABLET (FP) PO SCH (21:33)
[2017-07-12] MEDS: traZODone HCL 100 MG TABLET (FP) PO SCH (21:33)
[2017-07-12] MEDS: DOCUSATE SODIUM 100 MG CAPSULE (FP) PO SCH (21:33)
[2017-07-12] MEDS: metroNIDAZOLE 0.75% VAGINAL GEL 70 GM TUBE VG SCH (21:35)
[2017-07-13] MEDS ORDERED: METHADONE HCL 40 MG DISPERSABLE TABLET PO SCH (06:00)
[2017-07-13] MEDS ORDERED: METHADONE HCL 10 MG TABLET ONE (06:22)
[2017-07-13] MEDS ORDERED: METHADONE HCL 40 MG DISPERSABLE TABLET ONE (06:23)
[2017-07-13] MEDS: METHADONE 40 MG, METHADONE 30 MG PO SCH (06:54)
[2017-07-13] MEDS: GABAPENTIN 300 MG CAPSULE (FP) PO SCH ×3 (06:55→21:30)
[2017-07-13] MEDS: NITROFURANTOIN MACROCRYSTAL 50 MG CAPSULE (FP) PO SCH ×2 (06:55→11:54)
[2017-07-13] MEDS: PANTOPRAZOLE 40 MG TABLET (FP) PO SCH (06:55)
[2017-07-13] MEDS ORDERED: PT OWN MED DRAWER 7, Y5N ONE ×2 (08:55→09:42)
[2017-07-13] MEDS: BUDESONIDE/FORMETEROL FUMARATE 80/4.5 mcg INHALER IH SCH ×2 (09:39→21:34)
[2017-07-13] MEDS: PRENATAL VITAMINS W/ FOLIC ACID TABLET (FP) PO SCH (09:39)
[2017-07-13] MEDS: NICOTINE 21 MG/24 HOURS TOPICAL PATCH TD SCH (09:39)
[2017-07-13] MEDS: CITALOPRAM HYDROBROMIDE 20 MG TABLET (FP) PO SCH (09:39)
[2017-07-13] MEDS: FUROSEMIDE 20 MG TABLET (FP) PO SCH (09:40)
[2017-07-13] MEDS: SPIRONOLACTONE 25 MG TABLET (FP) PO SCH ×2 (09:40→18:08)
[2017-07-13] MEDS: TOLNAFTATE 1% CREAM 15 GM TUBE TP SCH ×2 (09:40→21:34)
[2017-07-13] MEDS: MINERAL OIL/PETROLAT/WATER TOPICAL CREAM 113 GM JAR TP SCH ×2 (09:41→21:33)
[2017-07-13] MEDS: hydrOXYzine PAMOATE 50 MG CAPSULE (FP) PO PRN (13:38)
[2017-07-13] MEDS: THIAMINE HCL 100 MG TABLET (FP) PO SCH (21:30)
[2017-07-13] MEDS: IBUPROFEN 600 MG TABLET (FP) PO PRN (21:32)
[2017-07-13] MEDS: DOCUSATE SODIUM 100 MG CAPSULE (FP) PO SCH (21:32)
[2017-07-13] MEDS: metroNIDAZOLE 0.75% VAGINAL GEL 70 GM TUBE VG SCH (21:33)
[2017-07-13] MEDS: traZODone HCL 100 MG TABLET (FP) PO SCH (21:33)
[2017-07-13] MEDS: QUEtiapine FUMARATE 100 MG TABLET (FP) PO SCH (21:34)
[2017-07-14] MEDS ORDERED: METHADONE HCL 10 MG TABLET ONE (05:56)
[2017-07-14] MEDS ORDERED: METHADONE HCL 40 MG DISPERSABLE TABLET ONE (05:57)
[2017-07-14] MEDS: PANTOPRAZOLE 40 MG TABLET (FP) PO SCH (06:41)
[2017-07-14] MEDS: METHADONE 40 MG, METHADONE 30 MG PO SCH (06:41)
[2017-07-14] MEDS: GABAPENTIN 300 MG CAPSULE (FP) PO SCH ×2 (06:41→21:45)
[2017-07-14] MEDS ORDERED: PT OWN MED DRAWER 7, Y5N ONE ×2 (08:40→11:38)
[2017-07-14] MEDS: NICOTINE 21 MG/24 HOURS TOPICAL PATCH TD SCH (10:20)
[2017-07-14] MEDS: CITALOPRAM HYDROBROMIDE 20 MG TABLET (FP) PO SCH (10:20)
[2017-07-14] MEDS: TOLNAFTATE 1% CREAM 15 GM TUBE TP SCH ×2 (10:20→21:48)
[2017-07-14] MEDS: BUDESONIDE/FORMETEROL FUMARATE 80/4.5 mcg INHALER IH SCH ×2 (10:20→21:46)
[2017-07-14] MEDS: SPIRONOLACTONE 25 MG TABLET (FP) PO SCH ×2 (10:20→17:26)
[2017-07-14] MEDS: FUROSEMIDE 20 MG TABLET (FP) PO SCH (10:20)
[2017-07-14] MEDS: PRENATAL VITAMINS W/ FOLIC ACID TABLET (FP) PO SCH (10:20)
[2017-07-14] MEDS: MINERAL OIL/PETROLAT/WATER TOPICAL CREAM 113 GM JAR TP SCH ×2 (10:21→21:45)
[2017-07-14] MEDS ORDERED: ALBUTEROL SO4 2.5/IPRATROPIUM 0.5 INH SOL 3 ML VIAL.NEB. NEB PRN (11:08)
[2017-07-14] MEDS: IBUPROFEN 600 MG TABLET (FP) PO PRN (21:42)
[2017-07-14] MEDS: THIAMINE HCL 100 MG TABLET (FP) PO SCH (21:42)
[2017-07-14] MEDS: MAGNESIUM HYDROX 2400MG/30ML ORAL SUSPENSION 30 ML CUP PO PRN (21:43)
[2017-07-14] MEDS: metroNIDAZOLE 0.75% VAGINAL GEL 70 GM TUBE VG SCH (21:43)
[2017-07-14] MEDS: traZODone HCL 100 MG TABLET (FP) PO SCH (21:44)
[2017-07-14] MEDS: DOCUSATE SODIUM 100 MG CAPSULE (FP) PO SCH (21:44)
[2017-07-14] MEDS: QUEtiapine FUMARATE 100 MG TABLET (FP) PO SCH (21:45)
[2017-07-14] MEDS: COLLOIDAL OATMEAL 1 BAR EACH TP PRN (21:47)
[2017-07-14] MEDS: NICOTINE POLACRILEX 2 MG GUM BC PRN (21:51)
[2017-07-15] MEDS ORDERED: METHADONE HCL 10 MG TABLET ONE (06:06)
[2017-07-15] MEDS ORDERED: METHADONE HCL 40 MG DISPERSABLE TABLET ONE (06:07)
[2017-07-15] MEDS: METHADONE 40 MG, METHADONE 30 MG PO SCH (06:31)
[2017-07-15] MEDS: PANTOPRAZOLE 40 MG TABLET (FP) PO SCH (06:31)
[2017-07-15] MEDS: GABAPENTIN 300 MG CAPSULE (FP) PO SCH ×4 (06:31→21:30)
[2017-07-15] MEDS ORDERED: PT OWN MED DRAWER 7, Y5N ONE ×4 (08:31→22:28)
[2017-07-15] MEDS: BUDESONIDE/FORMETEROL FUMARATE 80/4.5 mcg INHALER IH SCH ×2 (09:58→21:36)
[2017-07-15] MEDS: NICOTINE 21 MG/24 HOURS TOPICAL PATCH TD SCH (09:58)
[2017-07-15] MEDS: TOLNAFTATE 1% CREAM 15 GM TUBE TP SCH ×2 (09:59→21:36)
[2017-07-15] MEDS: PRENATAL VITAMINS W/ FOLIC ACID TABLET (FP) PO SCH (09:59)
[2017-07-15] MEDS: SPIRONOLACTONE 25 MG TABLET (FP) PO SCH ×2 (10:00→17:04)
[2017-07-15] MEDS: CITALOPRAM HYDROBROMIDE 20 MG TABLET (FP) PO SCH (10:00)
[2017-07-15] MEDS: MINERAL OIL/PETROLAT/WATER TOPICAL CREAM 113 GM JAR TP SCH ×2 (10:01→21:36)
[2017-07-15] MEDS: FUROSEMIDE 20 MG TABLET (FP) PO SCH (10:01)
[2017-07-15] MEDS: COLLOIDAL OATMEAL 1 BAR EACH TP PRN (10:17)
[2017-07-15] MEDS: NICOTINE POLACRILEX 2 MG GUM BC PRN ×2 (13:11→18:06)
[2017-07-15] MEDS: hydrOXYzine PAMOATE 50 MG CAPSULE (FP) PO PRN (15:04)
[2017-07-15] MEDS: traZODone HCL 100 MG TABLET (FP) PO SCH (21:30)
[2017-07-15] MEDS: DOCUSATE SODIUM 100 MG CAPSULE (FP) PO SCH (21:30)
[2017-07-15] MEDS: THIAMINE HCL 100 MG TABLET (FP) PO SCH (21:30)
[2017-07-15] MEDS: QUEtiapine FUMARATE 100 MG TABLET (FP) PO SCH (21:32)
[2017-07-15] MEDS: ALBUTEROL SO4 18 GM HFA INHALER IH PRN (21:37)
[2017-07-16] MEDS ORDERED: METHADONE HCL 40 MG DISPERSABLE TABLET ONE (03:29)
[2017-07-16] MEDS ORDERED: METHADONE HCL 10 MG TABLET ONE (03:29)
[2017-07-16] MEDS: METHADONE 40 MG, METHADONE 30 MG PO SCH (06:41)
[2017-07-16] MEDS: PANTOPRAZOLE 40 MG TABLET (FP) PO SCH (06:42)
[2017-07-16] MEDS: GABAPENTIN 300 MG CAPSULE (FP) PO SCH ×3 (06:42→21:29)
[2017-07-16] MEDS: SPIRONOLACTONE 25 MG TABLET (FP) PO SCH ×2 (09:33→16:59)
[2017-07-16] MEDS: PRENATAL VITAMINS W/ FOLIC ACID TABLET (FP) PO SCH (09:33)
[2017-07-16] MEDS: BUDESONIDE/FORMETEROL FUMARATE 80/4.5 mcg INHALER IH SCH ×2 (09:34→21:31)
[2017-07-16] MEDS: CITALOPRAM HYDROBROMIDE 20 MG TABLET (FP) PO SCH (09:34)
[2017-07-16] MEDS: NICOTINE 21 MG/24 HOURS TOPICAL PATCH TD SCH (09:34)
[2017-07-16] MEDS: MINERAL OIL/PETROLAT/WATER TOPICAL CREAM 113 GM JAR TP SCH ×2 (09:35→21:32)
[2017-07-16] MEDS: TOLNAFTATE 1% CREAM 15 GM TUBE TP SCH ×2 (09:36→21:31)
[2017-07-16] MEDS: FUROSEMIDE 20 MG TABLET (FP) PO SCH (09:36)
[2017-07-16] MEDS: hydrOXYzine PAMOATE 50 MG CAPSULE (FP) PO PRN (09:37)
[2017-07-16] MEDS: NICOTINE POLACRILEX 2 MG GUM BC PRN ×2 (13:22→21:30)
[2017-07-16] MEDS: IBUPROFEN 600 MG TABLET (FP) PO PRN ×2 (14:53→21:28)
[2017-07-16] MEDS: THIAMINE HCL 100 MG TABLET (FP) PO SCH (21:28)
[2017-07-16] MEDS: DOCUSATE SODIUM 100 MG CAPSULE (FP) PO SCH (21:28)
[2017-07-16] MEDS: traZODone HCL 100 MG TABLET (FP) PO SCH (21:29)
[2017-07-16] MEDS: QUEtiapine FUMARATE 100 MG TABLET (FP) PO SCH (21:30)
[2017-07-17] MEDS ORDERED: METHADONE HCL 10 MG TABLET ONE (03:11)
[2017-07-17] MEDS ORDERED: METHADONE HCL 40 MG DISPERSABLE TABLET ONE (03:11)
[2017-07-17] MEDS: METHADONE 40 MG, METHADONE 30 MG PO SCH (06:43)
[2017-07-17] MEDS: PANTOPRAZOLE 40 MG TABLET (FP) PO SCH (06:44)
[2017-07-17] MEDS: GABAPENTIN 300 MG CAPSULE (FP) PO SCH ×3 (06:44→21:22)
[2017-07-17] MEDS: COLLOIDAL OATMEAL 1 BAR EACH TP PRN (07:04)
[2017-07-17] MEDS ORDERED: PT OWN MED DRAWER 7, Y5N ONE (08:32)
[2017-07-17] MEDS: BUDESONIDE/FORMETEROL FUMARATE 80/4.5 mcg INHALER IH SCH ×2 (10:03→21:23)
[2017-07-17] MEDS: FUROSEMIDE 20 MG TABLET (FP) PO SCH (10:04)
[2017-07-17] MEDS: PRENATAL VITAMINS W/ FOLIC ACID TABLET (FP) PO SCH (10:04)
[2017-07-17] MEDS: SPIRONOLACTONE 25 MG TABLET (FP) PO SCH ×2 (10:04→17:45)
[2017-07-17] MEDS: MINERAL OIL/PETROLAT/WATER TOPICAL CREAM 113 GM JAR TP SCH ×2 (10:04→21:24)
[2017-07-17] MEDS: NICOTINE 21 MG/24 HOURS TOPICAL PATCH TD SCH (10:04)
[2017-07-17] MEDS: CITALOPRAM HYDROBROMIDE 20 MG TABLET (FP) PO SCH (10:04)
[2017-07-17] MEDS: TOLNAFTATE 1% CREAM 15 GM TUBE TP SCH ×2 (10:04→21:23)
[2017-07-17] MEDS: hydrOXYzine PAMOATE 50 MG CAPSULE (FP) PO PRN (10:07)
[2017-07-17] MEDS: ALBUTEROL SO4 18 GM HFA INHALER IH PRN (10:33)
[2017-07-17] MEDS: traZODone HCL 100 MG TABLET (FP) PO SCH (21:22)
[2017-07-17] MEDS: IBUPROFEN 600 MG TABLET (FP) PO PRN (21:22)
[2017-07-17] MEDS: DOCUSATE SODIUM 100 MG CAPSULE (FP) PO SCH (21:22)
[2017-07-17] MEDS: THIAMINE HCL 100 MG TABLET (FP) PO SCH (21:23)
[2017-07-17] MEDS: QUEtiapine FUMARATE 100 MG TABLET (FP) PO SCH (21:24)
[2017-07-18] MEDS ORDERED: METHADONE HCL 10 MG TABLET ONE (05:48)
[2017-07-18] MEDS ORDERED: METHADONE HCL 40 MG DISPERSABLE TABLET ONE (05:49)
[2017-07-18] MEDS: METHADONE 40 MG, METHADONE 30 MG PO SCH (06:10)
[2017-07-18] MEDS: GABAPENTIN 300 MG CAPSULE (FP) PO SCH ×3 (06:10→21:36)
[2017-07-18] MEDS: PANTOPRAZOLE 40 MG TABLET (FP) PO SCH (06:10)
[2017-07-18] MEDS: FUROSEMIDE 20 MG TABLET (FP) PO SCH (10:23)
[2017-07-18] MEDS: CITALOPRAM HYDROBROMIDE 20 MG TABLET (FP) PO SCH (10:23)
[2017-07-18] MEDS: PRENATAL VITAMINS W/ FOLIC ACID TABLET (FP) PO SCH (10:23)
[2017-07-18] MEDS: TOLNAFTATE 1% CREAM 15 GM TUBE TP SCH ×2 (10:23→21:37)
[2017-07-18] MEDS: SPIRONOLACTONE 25 MG TABLET (FP) PO SCH ×2 (10:23→17:37)
[2017-07-18] MEDS: MINERAL OIL/PETROLAT/WATER TOPICAL CREAM 113 GM JAR TP SCH ×2 (10:24→21:36)
[2017-07-18] MEDS: NICOTINE 21 MG/24 HOURS TOPICAL PATCH TD SCH (10:24)
[2017-07-18] MEDS: BUDESONIDE/FORMETEROL FUMARATE 80/4.5 mcg INHALER IH SCH ×2 (10:24→21:38)
[2017-07-18] MEDS: NICOTINE POLACRILEX 2 MG GUM BC PRN (10:25)
[2017-07-18] MEDS ORDERED: PT OWN MED DRAWER 7, Y5N ONE (12:17)
[2017-07-18] MEDS: THIAMINE HCL 100 MG TABLET (FP) PO SCH (21:35)
[2017-07-18] MEDS: DOCUSATE SODIUM 100 MG CAPSULE (FP) PO SCH (21:35)
[2017-07-18] MEDS: traZODone HCL 100 MG TABLET (FP) PO SCH (21:36)
[2017-07-18] MEDS: QUEtiapine FUMARATE 100 MG TABLET (FP) PO SCH (21:37)
[2017-07-18] MEDS: IBUPROFEN 600 MG TABLET (FP) PO PRN (21:39)
[2017-07-19] MEDS ORDERED: METHADONE HCL 10 MG TABLET ONE (05:31)
[2017-07-19] MEDS ORDERED: METHADONE HCL 40 MG DISPERSABLE TABLET ONE (05:31)
[2017-07-19] MEDS: METHADONE 40 MG, METHADONE 30 MG PO SCH (06:21)
[2017-07-19] MEDS: GABAPENTIN 300 MG CAPSULE (FP) PO SCH ×3 (06:22→21:20)
[2017-07-19] MEDS: PANTOPRAZOLE 40 MG TABLET (FP) PO SCH (06:23)
[2017-07-19] MEDS ORDERED: PT OWN MED DRAWER 7, Y5N ONE (08:28)
[2017-07-19] MEDS: PRENATAL VITAMINS W/ FOLIC ACID TABLET (FP) PO SCH (09:59)
[2017-07-19] MEDS: NICOTINE 21 MG/24 HOURS TOPICAL PATCH TD SCH (09:59)
[2017-07-19] MEDS: BUDESONIDE/FORMETEROL FUMARATE 80/4.5 mcg INHALER IH SCH ×2 (09:59→21:23)
[2017-07-19] MEDS: FUROSEMIDE 20 MG TABLET (FP) PO SCH (10:00)
[2017-07-19] MEDS: SPIRONOLACTONE 25 MG TABLET (FP) PO SCH ×2 (10:00→19:00)
[2017-07-19] MEDS: MINERAL OIL/PETROLAT/WATER TOPICAL CREAM 113 GM JAR TP SCH ×2 (10:00→21:22)
[2017-07-19] MEDS: CITALOPRAM HYDROBROMIDE 20 MG TABLET (FP) PO SCH (10:00)
[2017-07-19] MEDS: TOLNAFTATE 1% CREAM 15 GM TUBE TP SCH ×2 (10:00→21:23)
[2017-07-19] MEDS: hydrOXYzine PAMOATE 50 MG CAPSULE (FP) PO PRN (10:02)
[2017-07-19] MEDS: THIAMINE HCL 100 MG TABLET (FP) PO SCH (21:19)
[2017-07-19] MEDS: DOCUSATE SODIUM 100 MG CAPSULE (FP) PO SCH (21:20)
[2017-07-19] MEDS: traZODone HCL 100 MG TABLET (FP) PO SCH (21:21)
[2017-07-19] MEDS: QUEtiapine FUMARATE 100 MG TABLET (FP) PO SCH (21:22)
[2017-07-19] MEDS: NICOTINE POLACRILEX 2 MG GUM BC PRN (21:22)
[2017-07-20] MEDS ORDERED: METHADONE HCL 40 MG DISPERSABLE TABLET ONE (04:15)
[2017-07-20] MEDS ORDERED: METHADONE HCL 10 MG TABLET ONE (04:15)
[2017-07-20] MEDS: METHADONE 40 MG, METHADONE 30 MG PO SCH (05:59)
[2017-07-20] MEDS: PANTOPRAZOLE 40 MG TABLET (FP) PO SCH (05:59)
[2017-07-20] MEDS: GABAPENTIN 300 MG CAPSULE (FP) PO SCH ×3 (05:59→21:34)
[2017-07-20] MEDS: ALBUTEROL SO4 18 GM HFA INHALER IH PRN (06:02)
[2017-07-20] MEDS: SPIRONOLACTONE 25 MG TABLET (FP) PO SCH ×2 (10:43→17:13)
[2017-07-20] MEDS: NICOTINE 21 MG/24 HOURS TOPICAL PATCH TD SCH (10:59)
[2017-07-20] MEDS: PRENATAL VITAMINS W/ FOLIC ACID TABLET (FP) PO SCH (10:59)
[2017-07-20] MEDS: CITALOPRAM HYDROBROMIDE 20 MG TABLET (FP) PO SCH (10:59)
[2017-07-20] MEDS: hydrOXYzine PAMOATE 50 MG CAPSULE (FP) PO PRN (11:01)
[2017-07-20] MEDS: NICOTINE POLACRILEX 2 MG GUM BC PRN (11:04)
[2017-07-20] MEDS: TOLNAFTATE 1% CREAM 15 GM TUBE TP SCH ×2 (11:06→23:27)
[2017-07-20] MEDS ORDERED: PT OWN MED DRAWER 7, Y5N ONE ×2 (11:09→14:02)
[2017-07-20] MEDS: BUDESONIDE/FORMETEROL FUMARATE 80/4.5 mcg INHALER IH SCH ×2 (11:10→21:38)
--- NOTE | 2017-07-20 11:13 | PN ---
Progress Note (short form) - Note Progress Note: c/o foul smelling thick white vaginal discharge with intermittent scant blood. was treated for yeast infection with metronidazole vaginal gel for 4 days, says it helped when she used it, the discharge returned when the medication was stopped. denies itching, dysuria, hematuria, fever Plan continue metronidazole 0.75% TP for 5 days for yeast infection hold aldactone 25mg 10AM dose, continue with lasix AM dose due to BP 102/67, HR 86 at 11:20am. Discussed with Dr. Rhodes Problem List - Problems (1) Vaginal infection Code(s): N76.0 - ACUTE VAGINITIS (2) COPD (chronic obstructive pulmonary disease) Code(s): J44.9 - CHRONIC OBSTRUCTIVE PULMONARY DISEASE, UNSPECIFIED (3) Cocaine dependence Code(s): F14.20 - COCAINE DEPENDENCE, UNCOMPLICATED (4) GERD (gastroesophageal reflux disease) Code(s): K21.9 - GASTRO-ESOPHAGEAL REFLUX DISEASE WITHOUT ESOPHAGITIS (5) Nicotine dependence Code(s): F17.200 - NICOTINE DEPENDENCE, UNSPECIFIED, UNCOMPLICATED (6) Opioid dependence on agonist therapy Code(s): F11.20 - OPIOID DEPENDENCE, UNCOMPLICATED
[2017-07-20] MEDS: MINERAL OIL/PETROLAT/WATER TOPICAL CREAM 113 GM JAR TP SCH ×2 (11:46→21:36)
[2017-07-20] MEDS: FUROSEMIDE 20 MG TABLET (FP) PO SCH (13:44)
[2017-07-20] MEDS: MAGNESIUM HYDROX 2400MG/30ML ORAL SUSPENSION 30 ML CUP PO PRN (21:33)
[2017-07-20] MEDS: QUEtiapine FUMARATE 100 MG TABLET (FP) PO SCH (21:33)
[2017-07-20] MEDS: IBUPROFEN 600 MG TABLET (FP) PO PRN (21:33)
[2017-07-20] MEDS: DOCUSATE SODIUM 100 MG CAPSULE (FP) PO SCH (21:34)
[2017-07-20] MEDS: traZODone HCL 100 MG TABLET (FP) PO SCH (21:34)
[2017-07-20] MEDS: metroNIDAZOLE 0.75% VAGINAL GEL 70 GM TUBE VG SCH (21:37)
[2017-07-20] MEDS: THIAMINE HCL 100 MG TABLET (FP) PO SCH (21:40)
[2017-07-20] MEDS ORDERED: metroNIDAZOLE 1% TOPICAL CREAM 60 GM/TUBE TP SCH (22:00)
[2017-07-21] MEDS ORDERED: METHADONE HCL 40 MG DISPERSABLE TABLET ONE (03:10)
[2017-07-21] MEDS ORDERED: METHADONE HCL 10 MG TABLET ONE (03:10)
[2017-07-21] MEDS: METHADONE 40 MG, METHADONE 30 MG PO SCH (06:56)
[2017-07-21] MEDS: PANTOPRAZOLE 40 MG TABLET (FP) PO SCH (06:57)
[2017-07-21] MEDS: GABAPENTIN 300 MG CAPSULE (FP) PO SCH ×3 (06:57→21:35)
[2017-07-21] MEDS ORDERED: PT OWN MED DRAWER 7, Y5N ONE (08:37)
[2017-07-21] MEDS: FUROSEMIDE 20 MG TABLET (FP) PO SCH (10:22)
[2017-07-21] MEDS: CITALOPRAM HYDROBROMIDE 20 MG TABLET (FP) PO SCH (10:22)
[2017-07-21] MEDS: NICOTINE 21 MG/24 HOURS TOPICAL PATCH TD SCH (10:22)
[2017-07-21] MEDS: BUDESONIDE/FORMETEROL FUMARATE 80/4.5 mcg INHALER IH SCH ×2 (10:22→21:34)
[2017-07-21] MEDS: SPIRONOLACTONE 25 MG TABLET (FP) PO SCH ×2 (10:22→17:58)
[2017-07-21] MEDS: MINERAL OIL/PETROLAT/WATER TOPICAL CREAM 113 GM JAR TP SCH ×2 (10:22→21:35)
[2017-07-21] MEDS: PRENATAL VITAMINS W/ FOLIC ACID TABLET (FP) PO SCH (10:22)
[2017-07-21] MEDS: TOLNAFTATE 1% CREAM 15 GM TUBE TP SCH ×2 (10:22→21:35)
[2017-07-21] MEDS: QUEtiapine FUMARATE 100 MG TABLET (FP) PO SCH (21:35)
[2017-07-21] MEDS: THIAMINE HCL 100 MG TABLET (FP) PO SCH (21:35)
[2017-07-21] MEDS: traZODone HCL 100 MG TABLET (FP) PO SCH (21:36)
[2017-07-21] MEDS: DOCUSATE SODIUM 100 MG CAPSULE (FP) PO SCH (21:36)
[2017-07-21] MEDS: metroNIDAZOLE 0.75% VAGINAL GEL 70 GM TUBE VG SCH (21:46)
[2017-07-22] MEDS ORDERED: METHADONE HCL 40 MG DISPERSABLE TABLET ONE (05:57)
[2017-07-22] MEDS ORDERED: METHADONE HCL 10 MG TABLET ONE (05:57)
[2017-07-22] MEDS: PANTOPRAZOLE 40 MG TABLET (FP) PO SCH (06:51)
[2017-07-22] MEDS: METHADONE 40 MG, METHADONE 30 MG PO SCH (06:51)
[2017-07-22] MEDS: GABAPENTIN 300 MG CAPSULE (FP) PO SCH ×3 (06:51→21:23)
[2017-07-22] MEDS: FUROSEMIDE 20 MG TABLET (FP) PO SCH (09:41)
[2017-07-22] MEDS: CITALOPRAM HYDROBROMIDE 20 MG TABLET (FP) PO SCH (09:41)
[2017-07-22] MEDS: MINERAL OIL/PETROLAT/WATER TOPICAL CREAM 113 GM JAR TP SCH ×2 (09:41→21:26)
[2017-07-22] MEDS: NICOTINE 21 MG/24 HOURS TOPICAL PATCH TD SCH (09:41)
[2017-07-22] MEDS: SPIRONOLACTONE 25 MG TABLET (FP) PO SCH ×2 (09:41→19:01)
[2017-07-22] MEDS: PRENATAL VITAMINS W/ FOLIC ACID TABLET (FP) PO SCH (09:41)
[2017-07-22] MEDS: TOLNAFTATE 1% CREAM 15 GM TUBE TP SCH ×2 (09:41→21:26)
[2017-07-22] MEDS: BUDESONIDE/FORMETEROL FUMARATE 80/4.5 mcg INHALER IH SCH ×2 (09:41→21:26)
[2017-07-22] MEDS ORDERED: ALBUTEROL SO4 2.5/IPRATROPIUM 0.5 INH SOL 3 ML VIAL.NEB. NEB PRN (12:47)
[2017-07-22] MEDS: hydrOXYzine PAMOATE 50 MG CAPSULE (FP) PO PRN (13:32)
[2017-07-22] MEDS: ALBUTEROL SO4 2.5/IPRATROPIUM 0.5 INH SOL 3 ML VIAL.NEB. NEB SCH ×3 (13:32→21:25)
[2017-07-22] MEDS: traZODone HCL 100 MG TABLET (FP) PO SCH (21:23)
[2017-07-22] MEDS: THIAMINE HCL 100 MG TABLET (FP) PO SCH (21:23)
[2017-07-22] MEDS: QUEtiapine FUMARATE 100 MG TABLET (FP) PO SCH (21:24)
[2017-07-22] MEDS: DOCUSATE SODIUM 100 MG CAPSULE (FP) PO SCH (21:24)
[2017-07-22] MEDS: metroNIDAZOLE 0.75% VAGINAL GEL 70 GM TUBE VG SCH (21:26)
[2017-07-22] MEDS ORDERED: PT OWN MED DRAWER 7, Y5N ONE (21:28)
[2017-07-23] MEDS ORDERED: METHADONE HCL 10 MG TABLET ONE (05:55)
[2017-07-23] MEDS ORDERED: METHADONE HCL 40 MG DISPERSABLE TABLET ONE (05:56)
[2017-07-23] MEDS: PANTOPRAZOLE 40 MG TABLET (FP) PO SCH (06:34)
[2017-07-23] MEDS: GABAPENTIN 300 MG CAPSULE (FP) PO SCH ×3 (06:34→21:32)
[2017-07-23] MEDS: METHADONE 40 MG, METHADONE 30 MG PO SCH (06:35)
[2017-07-23] MEDS ORDERED: PT OWN MED DRAWER 7, Y5N ONE (08:50)
[2017-07-23] MEDS: CITALOPRAM HYDROBROMIDE 20 MG TABLET (FP) PO SCH (09:57)
[2017-07-23] MEDS: SPIRONOLACTONE 25 MG TABLET (FP) PO SCH ×2 (09:57→18:30)
[2017-07-23] MEDS: MINERAL OIL/PETROLAT/WATER TOPICAL CREAM 113 GM JAR TP SCH ×2 (09:57→23:40)
[2017-07-23] MEDS: PRENATAL VITAMINS W/ FOLIC ACID TABLET (FP) PO SCH (09:57)
[2017-07-23] MEDS: FUROSEMIDE 20 MG TABLET (FP) PO SCH (09:57)
[2017-07-23] MEDS: BUDESONIDE/FORMETEROL FUMARATE 80/4.5 mcg INHALER IH SCH ×2 (09:57→21:33)
[2017-07-23] MEDS: NICOTINE 21 MG/24 HOURS TOPICAL PATCH TD SCH (09:58)
[2017-07-23] MEDS: TOLNAFTATE 1% CREAM 15 GM TUBE TP SCH ×2 (09:59→23:41)
[2017-07-23] MEDS: hydrOXYzine PAMOATE 50 MG CAPSULE (FP) PO PRN (13:33)
[2017-07-23] MEDS: ALBUTEROL SO4 2.5/IPRATROPIUM 0.5 INH SOL 3 ML VIAL.NEB. NEB SCH ×2 (18:31→21:34)
[2017-07-23] MEDS: IBUPROFEN 600 MG TABLET (FP) PO PRN (19:27)
--- NOTE | 2017-07-23 20:21 | PN ---
BHS Progress Note Note: C/O chest pain while sitting. no pain on exertion. VSS Lungs : Clear A&P Heart : RR, no murmur EKG : NSR, normal EKG Dx. : Non-Specific chest pain P : observe
[2017-07-23] MEDS: DOCUSATE SODIUM 100 MG CAPSULE (FP) PO SCH (21:32)
[2017-07-23] MEDS: traZODone HCL 100 MG TABLET (FP) PO SCH (21:32)
[2017-07-23] MEDS: QUEtiapine FUMARATE 100 MG TABLET (FP) PO SCH (21:32)
[2017-07-23] MEDS: THIAMINE HCL 100 MG TABLET (FP) PO SCH (21:32)
[2017-07-23] MEDS: metroNIDAZOLE 0.75% VAGINAL GEL 70 GM TUBE VG SCH (21:33)
[2017-07-24] MEDS ORDERED: METHADONE HCL 10 MG TABLET ONE (05:50)
[2017-07-24] MEDS ORDERED: METHADONE HCL 40 MG DISPERSABLE TABLET ONE (05:51)
[2017-07-24] MEDS: PANTOPRAZOLE 40 MG TABLET (FP) PO SCH (06:28)
[2017-07-24] MEDS: METHADONE 40 MG, METHADONE 30 MG PO SCH (06:28)
[2017-07-24] MEDS: GABAPENTIN 300 MG CAPSULE (FP) PO SCH ×3 (06:28→21:22)
[2017-07-24] MEDS ORDERED: PT OWN MED DRAWER 7, Y5N ONE ×3 (08:36→21:25)
[2017-07-24] MEDS: CITALOPRAM HYDROBROMIDE 20 MG TABLET (FP) PO SCH (09:52)
[2017-07-24] MEDS: FUROSEMIDE 20 MG TABLET (FP) PO SCH (09:52)
[2017-07-24] MEDS: SPIRONOLACTONE 25 MG TABLET (FP) PO SCH ×2 (09:52→17:08)
[2017-07-24] MEDS: PRENATAL VITAMINS W/ FOLIC ACID TABLET (FP) PO SCH (09:52)
[2017-07-24] MEDS: BUDESONIDE/FORMETEROL FUMARATE 80/4.5 mcg INHALER IH SCH ×2 (09:53→21:24)
[2017-07-24] MEDS: MINERAL OIL/PETROLAT/WATER TOPICAL CREAM 113 GM JAR TP SCH ×2 (09:53→21:23)
[2017-07-24] MEDS: NICOTINE 21 MG/24 HOURS TOPICAL PATCH TD SCH (09:53)
[2017-07-24] MEDS: ALBUTEROL SO4 2.5/IPRATROPIUM 0.5 INH SOL 3 ML VIAL.NEB. NEB SCH ×4 (09:54→21:23)
[2017-07-24] MEDS: TOLNAFTATE 1% CREAM 15 GM TUBE TP SCH ×2 (09:56→21:25)
--- NOTE | 2017-07-24 15:27 | EKG ---
Test Reason : Blood Pressure : / mmHG Vent. Rate : 071 BPM Atrial Rate : 071 BPM P-R Int : 134 ms QRS Dur : 084 ms QT Int : 398 ms P-R-T Axes : 046 072 066 degrees QTc Int : 432 ms NORMAL SINUS RHYTHM NORMAL ECG WHEN COMPARED WITH ECG OF 30-JUN-2017 23:12, NO SIGNIFICANT CHANGE WAS FOUND Confirmed by LEONARDO ROMERO MD ([id number]) on 07/24/2017 3:27:11 PM Referred By: Confirmed By:LEONARDO ROMERO MD
[2017-07-24] MEDS: THIAMINE HCL 100 MG TABLET (FP) PO SCH (21:22)
[2017-07-24] MEDS: QUEtiapine FUMARATE 100 MG TABLET (FP) PO SCH (21:22)
[2017-07-24] MEDS: traZODone HCL 100 MG TABLET (FP) PO SCH (21:22)
[2017-07-24] MEDS: DOCUSATE SODIUM 100 MG CAPSULE (FP) PO SCH (21:22)
[2017-07-24] MEDS: metroNIDAZOLE 0.75% VAGINAL GEL 70 GM TUBE VG SCH (21:25)
[2017-07-25] MEDS ORDERED: METHADONE HCL 40 MG DISPERSABLE TABLET ONE (05:21)
[2017-07-25] MEDS ORDERED: METHADONE HCL 10 MG TABLET ONE (05:21)
[2017-07-25] MEDS: PANTOPRAZOLE 40 MG TABLET (FP) PO SCH (06:11)
[2017-07-25] MEDS: GABAPENTIN 300 MG CAPSULE (FP) PO SCH ×3 (06:11→21:29)
[2017-07-25] MEDS: METHADONE 40 MG, METHADONE 30 MG PO SCH (06:11)
[2017-07-25] MEDS ORDERED: PT OWN MED DRAWER 7, Y5N ONE (08:45)
[2017-07-25] MEDS: NICOTINE 21 MG/24 HOURS TOPICAL PATCH TD SCH (09:47)
[2017-07-25] MEDS: BUDESONIDE/FORMETEROL FUMARATE 80/4.5 mcg INHALER IH SCH ×2 (09:48→21:29)
[2017-07-25] MEDS: PRENATAL VITAMINS W/ FOLIC ACID TABLET (FP) PO SCH (09:48)
[2017-07-25] MEDS: CITALOPRAM HYDROBROMIDE 20 MG TABLET (FP) PO SCH (09:48)
[2017-07-25] MEDS: TOLNAFTATE 1% CREAM 15 GM TUBE TP SCH ×2 (09:49→21:30)
[2017-07-25] MEDS: ALBUTEROL SO4 2.5/IPRATROPIUM 0.5 INH SOL 3 ML VIAL.NEB. NEB SCH (10:10)
[2017-07-25] MEDS: SPIRONOLACTONE 25 MG TABLET (FP) PO SCH ×2 (10:30→17:57)
[2017-07-25] MEDS: MINERAL OIL/PETROLAT/WATER TOPICAL CREAM 113 GM JAR TP SCH ×2 (10:30→21:29)
[2017-07-25] MEDS: FUROSEMIDE 20 MG TABLET (FP) PO SCH (10:31)
--- NOTE | 2017-07-25 11:02 | PN ---
Progress Note (short form) - Note Progress Note: no complaints. BP has been low while on both aldactone and lasix Vital Signs (72 hours) 07/24/17 07/24/17 07/24/17 03:30 07:13 10:00 Temperature 97.8 F Pulse Rate 64 91 H Respiratory 18 16 Rate Blood Pressure 99/64 117/71 07/24/17 07/25/17 07/25/17 15:05 00:30 03:30 Temperature Pulse Rate 81 Respiratory 18 18 Rate Blood Pressure 100/63 07/25/17 07/25/17 07/25/17 06:47 09:05 12:04 Temperature 97.9 F 97.9 F 97.9 F Pulse Rate 83 92 H 73 Respiratory 16 16 18 Rate Blood Pressure 107/74 103/65 112/73 Plan: Discontinue the lasix, continue the aldactone with parameters to hold if BP <100 /60 Resident Progress note, Dr. Carmichael, PGY-[address] Rhodes Problem List - Problems (1) Vaginal infection Code(s): N76.0 - ACUTE VAGINITIS (2) COPD (chronic obstructive pulmonary disease) Code(s): J44.9 - CHRONIC OBSTRUCTIVE PULMONARY DISEASE, UNSPECIFIED (3) Cocaine dependence Code(s): F14.20 - COCAINE DEPENDENCE, UNCOMPLICATED (4) GERD (gastroesophageal reflux disease) Code(s): K21.9 - GASTRO-ESOPHAGEAL REFLUX DISEASE WITHOUT ESOPHAGITIS (5) Nicotine dependence Code(s): F17.200 - NICOTINE DEPENDENCE, UNSPECIFIED, UNCOMPLICATED (6) Opioid dependence on agonist therapy Code(s): F11.20 - OPIOID DEPENDENCE, UNCOMPLICATED
[2017-07-25] MEDS: DOCUSATE SODIUM 100 MG CAPSULE (FP) PO SCH (21:28)
[2017-07-25] MEDS: QUEtiapine FUMARATE 100 MG TABLET (FP) PO SCH (21:28)
[2017-07-25] MEDS: traZODone HCL 100 MG TABLET (FP) PO SCH (21:28)
[2017-07-25] MEDS: ALBUTEROL SO4 18 GM HFA INHALER IH PRN (21:30)
[2017-07-25] MEDS: THIAMINE HCL 100 MG TABLET (FP) PO SCH (21:30)
[2017-07-25 21:33] LABS: URINE APPEARANCE CLOUDY; URINE BILIRUBIN NEGATIVE (NEGATIVE); URINE BLOOD 3+ (NEGATIVE); URINE COLOR LTYELLOW; URINE GLUCOSE (UA) NEGATIVE (NEGATIVE); URINE KETONE NEGATIVE (NEGATIVE); URINE NITRITE NEGATIVE (NEGATIVE); URINE PROTEIN NEGATIVE (NEGATIVE); URINE UROBILINOGEN NEGATIVE mg/dL (0.2-1.0)
[2017-07-25] MEDS: NICOTINE POLACRILEX 2 MG GUM BC PRN (21:33)
[2017-07-25 21:39] LABS: URINE LEUK ESTERASE 3+ (NEGATIVE)
[2017-07-25 21:41] LABS: EPI CELLS RARE /HPF (FEW); URINE BACTERIA MANY /hpf (NONE SEEN); YEAST RARE
[2017-07-26] MEDS ORDERED: METHADONE HCL 40 MG DISPERSABLE TABLET ONE (05:45)
[2017-07-26] MEDS ORDERED: METHADONE HCL 10 MG TABLET ONE (05:45)
[2017-07-26] MEDS: GABAPENTIN 300 MG CAPSULE (FP) PO SCH ×3 (06:29→21:21)
[2017-07-26] MEDS: PANTOPRAZOLE 40 MG TABLET (FP) PO SCH (06:30)
[2017-07-26] MEDS: METHADONE 40 MG, METHADONE 30 MG PO SCH (06:30)
[2017-07-26] MEDS: PRENATAL VITAMINS W/ FOLIC ACID TABLET (FP) PO SCH (10:06)
[2017-07-26] MEDS: CITALOPRAM HYDROBROMIDE 20 MG TABLET (FP) PO SCH (10:06)
[2017-07-26] MEDS: TOLNAFTATE 1% CREAM 15 GM TUBE TP SCH ×2 (10:07→21:22)
[2017-07-26] MEDS: SPIRONOLACTONE 25 MG TABLET (FP) PO SCH ×2 (10:07→18:10)
[2017-07-26] MEDS: BUDESONIDE/FORMETEROL FUMARATE 80/4.5 mcg INHALER IH SCH ×2 (10:07→21:21)
[2017-07-26] MEDS: hydrOXYzine PAMOATE 50 MG CAPSULE (FP) PO PRN ×2 (10:07→20:08)
[2017-07-26] MEDS: NICOTINE 21 MG/24 HOURS TOPICAL PATCH TD SCH (10:08)
[2017-07-26] MEDS: MINERAL OIL/PETROLAT/WATER TOPICAL CREAM 113 GM JAR TP SCH ×2 (10:08→21:24)
[2017-07-26] MEDS ORDERED: PT OWN MED DRAWER 7, Y5N ONE ×2 (11:05→20:24)
[2017-07-26] MEDS: IBUPROFEN 600 MG TABLET (FP) PO PRN (20:09)
[2017-07-26] MEDS: traZODone HCL 100 MG TABLET (FP) PO SCH (21:21)
[2017-07-26] MEDS: DOCUSATE SODIUM 100 MG CAPSULE (FP) PO SCH (21:21)
[2017-07-26] MEDS: QUEtiapine FUMARATE 100 MG TABLET (FP) PO SCH (21:22)
[2017-07-26] MEDS: THIAMINE HCL 100 MG TABLET (FP) PO SCH (21:24)
[2017-07-26] MEDS: NICOTINE POLACRILEX 2 MG GUM BC PRN (21:25)
[2017-07-27] MEDS: IBUPROFEN 600 MG TABLET (FP) PO PRN ×2 (02:00→17:22)
[2017-07-27] MEDS ORDERED: METHADONE HCL 40 MG DISPERSABLE TABLET ONE (03:36)
[2017-07-27] MEDS ORDERED: METHADONE HCL 10 MG TABLET ONE (03:36)
[2017-07-27] MEDS: PANTOPRAZOLE 40 MG TABLET (FP) PO SCH (06:33)
[2017-07-27] MEDS: GABAPENTIN 300 MG CAPSULE (FP) PO SCH ×3 (06:33→21:39)
[2017-07-27] MEDS: METHADONE 40 MG, METHADONE 30 MG PO SCH (06:34)
[2017-07-27] MEDS ORDERED: PT OWN MED DRAWER 7, Y5N ONE (09:14)
[2017-07-27] MEDS: PRENATAL VITAMINS W/ FOLIC ACID TABLET (FP) PO SCH (10:32)
[2017-07-27] MEDS: CITALOPRAM HYDROBROMIDE 20 MG TABLET (FP) PO SCH (10:32)
[2017-07-27] MEDS: hydrOXYzine PAMOATE 50 MG CAPSULE (FP) PO PRN ×2 (10:32→18:26)
[2017-07-27] MEDS: NICOTINE POLACRILEX 2 MG GUM BC PRN (10:33)
[2017-07-27] MEDS: TOLNAFTATE 1% CREAM 15 GM TUBE TP SCH ×2 (10:33→21:40)
[2017-07-27] MEDS: NICOTINE 21 MG/24 HOURS TOPICAL PATCH TD SCH (10:33)
[2017-07-27] MEDS: BUDESONIDE/FORMETEROL FUMARATE 80/4.5 mcg INHALER IH SCH ×2 (10:33→21:40)
[2017-07-27] MEDS: SPIRONOLACTONE 25 MG TABLET (FP) PO SCH ×2 (10:34→17:22)
[2017-07-27] MEDS: MINERAL OIL/PETROLAT/WATER TOPICAL CREAM 113 GM JAR TP SCH ×2 (10:35→21:40)
[2017-07-27] MEDS: traZODone HCL 100 MG TABLET (FP) PO SCH (21:39)
[2017-07-27] MEDS: DOCUSATE SODIUM 100 MG CAPSULE (FP) PO SCH (21:39)
[2017-07-27] MEDS: THIAMINE HCL 100 MG TABLET (FP) PO SCH (21:39)
[2017-07-27] MEDS: QUEtiapine FUMARATE 100 MG TABLET (FP) PO SCH (21:39)
[2017-07-27] MEDS: ALBUTEROL SO4 18 GM HFA INHALER IH PRN (21:41)
[2017-07-27] MEDS: MAGNESIUM HYDROX 2400MG/30ML ORAL SUSPENSION 30 ML CUP PO PRN (21:43)
[2017-07-28] MEDS ORDERED: METHADONE HCL 10 MG TABLET ONE (05:54)
[2017-07-28] MEDS ORDERED: METHADONE HCL 40 MG DISPERSABLE TABLET ONE (05:55)
[2017-07-28] MEDS: METHADONE 40 MG, METHADONE 30 MG PO SCH (06:17)
[2017-07-28] MEDS: PANTOPRAZOLE 40 MG TABLET (FP) PO SCH (06:17)
[2017-07-28] MEDS: GABAPENTIN 300 MG CAPSULE (FP) PO SCH (06:17)
[2017-07-28 07:14] VITALS: TEMP 98
--- NOTE | 2017-07-28 09:09 | PN ---
Psychiatric Progress Note Vital Signs: Vital Signs Period Temp Pulse Resp BP Sys/Glass Pulse Ox Last 24 Hr 98.0 F 70-94 18-18 96-149/60-88 Date of Session: 07/28/17 Chief Complaint:: Discharge visit HPI: Patient addressed Opioid dpendence comorbid with Bipolar disorder. ROS: Significant for COPD,Hep C. Current Medications: Active Medications Generic Name Dose Route Start Last Admin Trade Name Freq PRN Reason Stop Dose Admin Acetaminophen 650 mg 06/30/17 20:14 07/07/17 23:50 Tylenol - PO 650 mg Q4H PRN Administration PAIN Al Hydroxide/Mg Hydroxide 30 ml 06/30/17 20:14 07/12/17 13:02 Mylanta Oral Suspension - PO 30 ml Q6H PRN Administration DYSPEPSIA Albuterol Sulfate 1 puff 07/25/17 10:19 07/27/17 21:41 Ventolin Hfa Inhaler - IH 1 puff Q4H PRN Administration ASTHMA Budesonide/Formoterol Fumarate 1 puff 06/30/17 22:00 07/27/17 21:40 Symbicort 80/4.5mcg - IH Not Given BID ANA Citalopram Hydrobromide 40 mg 07/01/17 10:00 07/27/17 10:32 Celexa - PO 40 mg DAILY ANA Administration Colloidal Oatmeal 1 applic 07/06/17 12:24 07/17/17 07:04 Aveeno Soap - TP 1 applic DAILY PRN Administration HYGEINE Docusate Sodium 300 mg 07/07/17 22:00 07/27/17 21:39 Colace - PO 300 mg HS ANA Administration Eucalyptus/Menthol/Phenol/Sorbitol 1 each 06/30/17 20:14 07/11/17 06:26 Cepastat Lozenge - MM 1 each Q4H PRN Administration SORE THROAT Gabapentin 600 mg 07/05/17 14:27 07/28/17 06:17 Neurontin - PO 600 mg TID ANA Administration Guaifenesin 10 ml 06/30/17 20:14 Robitussin Dm - PO Q6H PRN COUGH Hydroxyzine Pamoate 50 mg 07/07/17 12:57 07/27/17 18:26 Vistaril - PO 50 mg Q6H PRN Administration ANXIETY Ibuprofen 600 mg 07/03/17 10:54 07/27/17 17:22 Motrin - PO 600 mg Q6H PRN Administration SEVERE PAIN Loperamide HCl 4 mg 06/30/17 20:14 Imodium - PO Q6H PRN DIARRHEA Magnesium Citrate 300 ml 06/30/17 20:14 07/15/17 13:12 Citroma - PO 300 ml Q48H PRN Administration CONSTIPATION Magnesium Hydroxide 30 ml 06/30/17 20:14 07/27/17 21:43 Milk Of Magnesia - PO 30 ml DAILY PRN Administration CONSTIPATION Methadone HCl 40 mg/ Methadone 70 mg 07/26/17 06:00 07/28/17 06:17 HCl 30 mg PO 08/02/17 05:59 70 mg DAILY@0600 ANA Administration Multi-Ingredient Lotion 1 applic 07/06/17 12:30 07/27/17 21:40 Eucerin (Small Jar) - TP Not Given BID ANA Nicotine 21 mg 07/01/17 10:00 07/27/17 10:33 Nicoderm Patch - TD 21 mg DAILY ANA Administration Nicotine Polacrilex 2 mg 06/30/17 20:14 07/27/17 10:33 Nicorette Gum - BC 2 mg Q2H PRN Administration NICOTINE REPLACEMENT RX Pantoprazole Sodium 40 mg 07/04/17 07:00 07/28/17 06:17 Protonix - PO 40 mg DAILY@0700 ANA Administration Multivit/Folic Acid/Iron 1 tab 07/01/17 10:00 07/27/17 10:32 Vitamins (Sjr) - PO Not Given DAILY ANA Quetiapine Fumarate 100 mg 07/05/17 22:00 07/27/17 21:39 Seroquel - PO 100 mg HS ANA Administration Spironolactone 25 mg 07/26/17 11:14 07/27/17 17:22 Aldactone - PO 25 mg BID@1000,1700 ANA Administration Thiamine HCl 100 mg 06/30/17 22:00 07/27/17 21:39 Vitamin B1 - PO 100 mg HS ANA Administration Tolnaftate 1 applic 07/12/17 10:00 07/27/17 21:40 Tinactin 1% Cream - TP 1 applic BID ANA Administration Trazodone HCl 100 mg 07/03/17 22:00 07/27/17 21:39 Desyrel - PO 100 mg HS ANA Administration Current Side Effect: No Lab tests ordered: No Lab tests reviewed: Yes Provider note:: Patient completed this program today.She has met her treatment goals and will continue to address her issues on outpatient basis at [facility].She reports finding that current medications including Neurontin 600 mg po tid,Seroquel 100 mg po hs and Trazodone 100 mg po hs help to cope with mood instability,depression,insomnia.[facility]. Supportive therapy provided focusing on relapse prevention. Patient is stable for discharge today. Total face to face time:: 25 Mental Status Exam - Mental Status Exam Alert and Oriented to: Time, Place, Person Cognitive Function: Grossly Intact Patient Appearance: Unkempt Mood: Euthymic Affect: Mood Congruent Patient Behavior: Cooperative Speech Pattern: Clear Voice Loudness: Normal Thought Process: Goal Oriented Thought Disorder: Not Present Hallucinations: Denies Suicidal Ideation: Denies Homicidal Ideation: Denies Insight/Judgement: Fair Sleep: Fair Appetite: Good Muscle strength/Tone: Normal Gait/Station: Normal
[2017-07-28 09:21] VITALS: BP 134/85; PULSE 96
[2017-07-28] MEDS: CITALOPRAM HYDROBROMIDE 20 MG TABLET (FP) PO SCH (09:44)
[2017-07-28] MEDS: BUDESONIDE/FORMETEROL FUMARATE 80/4.5 mcg INHALER IH SCH (09:44)
[2017-07-28] MEDS: SPIRONOLACTONE 25 MG TABLET (FP) PO SCH (09:44)
[2017-07-28] MEDS: PRENATAL VITAMINS W/ FOLIC ACID TABLET (FP) PO SCH (09:44)
[2017-07-28] MEDS: MINERAL OIL/PETROLAT/WATER TOPICAL CREAM 113 GM JAR TP SCH (09:45)
[2017-07-28] MEDS: TOLNAFTATE 1% CREAM 15 GM TUBE TP SCH (09:45)
[2017-07-28] MEDS: NICOTINE 21 MG/24 HOURS TOPICAL PATCH TD SCH (09:46)
[2017-07-28] MEDS ORDERED: PT OWN MED DRAWER 7, Y5N ONE (09:49)
== END 2017-07-28 10:54 | disposition home or self-care (01) | DRG 895 ==
LOC: YASAS 14:03 → Y3E 16:40
PROVIDERS: ADMIT Psychiatry & Neurology Psychiatry; ATTEND Psychiatry & Neurology Psychiatry
PROC: HZ42ZZZ Group Counseling for Substance Abuse Treatment, Cognitive-Behavioral (ICD-10-PCS; principal; 2017-06-30)
DX: F11.23 Opioid dependence with withdrawal (principal); F14.20 Cocaine dependence, uncomplicated; F31.81 Bipolar II disorder; N39.0 Urinary tract infection, site not specified; F17.210 Nicotine dependence, cigarettes, uncomplicated; Z86.73 Personal history of transient ischemic attack (TIA), and cerebral infarction without residual deficits; B18.2 Chronic viral hepatitis C; K21.9 Gastro-esophageal reflux disease without esophagitis; J43.9 Emphysema, unspecified; J45.909 Unspecified asthma, uncomplicated; N76.0 Acute vaginitis; B96.89 Other specified bacterial agents as the cause of diseases classified elsewhere; R07.89 Other chest pain; R60.0 Localized edema; K42.9 Umbilical hernia without obstruction or gangrene; R73.9 Hyperglycemia, unspecified; Z88.0 Allergy status to penicillin; Z88.1 Allergy status to other antibiotic agents
CPT/HCPCS: 36415; 80048; 80053; 81003; 81015; 85027; 86593; 87086; 87186; 90688; 93005; 93010; 94640; G0008; J0475; J0735